=== PATIENT | female | born 1950 | race Caucasian/White ===

== ENCOUNTER → 2016-10-04 | Outpatient (CLI) | payer OTHER, MEDICARE ==
[~2016-10-04] MED LIST: IOPAMIDOL (ISOVUE-300) 100 ML BTL IV ONE
[2016-10-04 17:53] LABS: CREATININE 0.7 mg/dL (0.6-1.0); GLOMERULAR FILTRATION RATE > 60
== END ==
LOC: FIMAGING 17:10
PROVIDERS: ATTEND Internal Medicine
DX: K57.30 Diverticulosis of large intestine without perforation or abscess without bleeding (principal); K59.00 Constipation, unspecified; R93.2 Abnormal findings on diagnostic imaging of liver and biliary tract; R50.9 Fever, unspecified
CPT/HCPCS: 74177; Q9967

== ENCOUNTER → 2016-11-01 | Outpatient (CLI) | payer OTHER, MEDICARE | LOC: BMCIMAGING 09:45 | DX: Z12.31 Encounter for screening mammogram for malignant neoplasm of breast (principal); Z80.3 Family history of malignant neoplasm of breast | CPT/HCPCS: G0202 ==

== ENCOUNTER → 2016-11-04 | Outpatient (CLI) | payer OTHER, MEDICARE | LOC: FIMAGING 13:57 | PROVIDERS: ATTEND Physician Assistant Medical | DX: M54.5 Low back pain (principal) ==

== ENCOUNTER 2017-03-03 12:23 | Emergency (ER) | payer OTHER, MEDICARE ==
--- NOTE | 2017-03-03 12:47 | CPEKG ---
Heart Rate: 66 RR Interval: 909 P-R Interval: 160 QRSD Interval: 82 QT Interval: 424 QTC Interval: 445 P Burkett: 52 QRS Burkett: 29 T Wave Burkett: -1 EKG Severity - BORDERLINE ECG - EKG Impression: SINUS RHYTHM EKG Impression: BORDERLINE T ABNORMALITIES, DIFFUSE LEADS Electronically Signed By: Marquez Collins 03-Mar-2017 16:08:06
--- NOTE | 2017-03-03 13:17 | EDPHY ---
H & P Time Seen by Provider: 03/03/17 13:16 HPI/ROS: Chief complaint. Vertigo HPI. 66-year-old female presents emergency department with complaint of dizziness. She awoke during the night rolled over and became dizzy. She is somewhat off balance to walking. She is fine if she remains still but head movement precipitates nausea and dizziness. No recent illness or head injury. No similar symptoms previously. Denies peripheral weakness or paresthesias. No recent URI symptoms. On the drive over she developed just brief left-sided anterior chest discomfort. There was no radiation. No shortness of breath. The discomfort is gone now and was not exacerbated by movement, position, breathing. ROS Constitutional. no fever/chills, no weakness Eyes. no problems with vision ENT. no sore throat, no nasal drainage Cardiovascular. Brief left chest discomfort Respiratory. no shortness of breath, no cough Abdominal. no abdominal pain, no nausea/vomiting, no diarrhea . no problems urinating MS. no calf pain/swelling, no neck/back pain, no joint pain Skin. no rash Lymph. no swollen glands Neuro. Dizziness Past Medical/Surgical History: Oophorectomy, hysterectomy, bladder reposition Social History: , nonsmoker, no alcohol Smoking Status: Never smoked Physical Exam: General Appearance: Alert well-developed female mild distress vital signs are stable Eyes: Pupils equal and round no pallor or injection. No nystagmus ENT, Mouth: Mucous membranes are moist. Respiratory: There are no retractions, lungs are clear to auscultation. Cardiovascular: Regular rate and rhythm. Gastrointestinal: Abdomen is soft and nontender, no masses, bowel sounds normal. Neurological: Awake and alert, sensory and motor exams grossly normal. Speech is normal. Cranial nerves are normal. [id number] is normal there is no pronator drift. Raax-uz-[id number] is normal Skin: Warm and dry, no rashes. Musculoskeletal: Neck is supple nontender. Extremities symmetrical, full range of motion. Psychiatric: Patient is oriented X 3, there is no agitation. Constitutional: Initial Vital Signs Temperature (C) 36.6 C 03/03/17 12:28 Heart Rate 68 03/03/17 12:28 Respiratory Rate 18 03/03/17 12:28 Blood Pressure 149/91 H 03/03/17 12:28 O2 Sat (%) 96 03/03/17 12:28 O2 Delivery Mode Room Air Allergies/Adverse Reactions: NICKEL Allergy (Mild, Uncoded 03/03/17 12:24) Rash Home Medications: Medication Instructions Recorded Estrogel 04/29/16 Meclizine HCl [Meclizine HCl 25 mg 25 mg PO TID PRN #10 tab 03/03/17 (RX,OTC)] Ondansetron Odt [Zofran Odt] 4 mg PO Q4PRN PRN #4 tab 03/03/17 Medical Decision Making - Diagnostics EKG Interpretation: EKG interpreted by me shows normal sinus rhythm with normal interval and axis. QRS is normal there is diffuse T-wave flattening in V3 and V4. There is no significant ST elevation or depression. There is no arrhythmia Imaging Results: Imaging Impressions Chest X-Ray 03/03/17 13:49 Impression: Normal chest x-ray. Procedures: IV normal saline, monitor. Meclizine for dizziness ED Course/Re-evaluation: Re-evaluation 3:20 p.m.. Patient is stable. She is feeling better. However we will road test her to make sure she is feeling better Patient feeling better and ambulates without difficulty. She has had no further chest discomfort. The patient and I discussed laboratory and EKG findings. We discussed treatment plan. She is offered admission but she is feeling better and would like to go home. She is encouraged to return over the weekend should she be worse. She expresses understanding and agreement. She is encouraged to follow up with her regular physician on Sunday for re-evaluation Differential Diagnosis: Patient has no symptoms or findings of CVA. I think that this is a peripheral labyrinthitis causing vertigo. Do not find any evidence of arrhythmia or acute coronary syndrome - Data Points Laboratory Results: Laboratory Results 03/03/17 14:25 03/03/17 14:25 03/03/17 03/03/17 14:25 14:25 WBC 10.67 10^3/uL H 10^3/uL (3.80-9.50) RBC 4.90 10^6/uL 10^6/uL (4.18-5.33) Hgb 15.2 g/dL g/dL (12.6-16.3) Hct 45.3 % % (38.0-47.0) MCV 92.4 fL fL (81.5-99.8) MCH 31.0 pg pg (27.9-34.1) MCHC 33.6 g/dL g/dL (32.4-36.7) RDW 12.6 % % (11.5-15.2) Plt Count 315 10^3/uL 10^3/uL (150-400) MPV 11.2 fL fL (8.7-11.7) Neut % (Auto) 80.8 % H % (39.3-74.2) Lymph % (Auto) 12.3 % L % (15.0-45.0) [place] % (Auto) 5.0 % % (4.5-13.0) Eos % (Auto) 0.6 % % (0.6-7.6) Baso % (Auto) 0.9 % % (0.3-1.7) Nucleat RBC Rel Count 0.0 % % (0.0-0.2) Absolute Neuts (auto) 8.63 10^3/uL H 10^3/uL (1.70-6.50) Absolute Lymphs (auto) 1.31 10^3/uL 10^3/uL (1.00-3.00) Absolute Monos (auto) 0.53 10^3/uL 10^3/uL (0.30-0.80) Absolute Eos (auto) 0.06 10^3/uL 10^3/uL (0.03-0.40) Absolute Basos (auto) 0.10 10^3/uL 10^3/uL (0.02-0.10) Absolute Nucleated RBC 0.00 10^3/uL 10^3/uL (0-0.01) Immature Gran % 0.4 % % (0.0-1.1) Immature Gran # 0.04 10^3/uL 10^3/uL (0.00-0.10) Sodium 143 mEq/L mEq/L (134-144) Potassium 4.3 mEq/L mEq/L (3.5-5.2) Chloride 109 mEq/L mEq/L (97-110) Carbon Dioxide 21 mEq/l L mEq/l (22-31) Anion Gap 13 mEq/L mEq/L (8-16) BUN 12 mg/dL mg/dL (7-23) Creatinine 0.6 mg/dL mg/dL (0.6-1.0) Estimated GFR > 60 Glucose 91 mg/dL mg/dL (70-100) Calcium 9.3 mg/dL mg/dL (8.5-10.4) Troponin I < 0.012 ng/mL ng/mL (0-0.034) Medications Given: Discontinued Medications Sodium Chloride (Ns) 1,000 mls @ 0 mls/hr IV ONCE ONE; Wide Open PRN Reason: Protocol Stop: 03/03/17 13:50 Last Admin: 03/03/17 14:21 Dose: 1,000 mls Meclizine HCl (Meclizine Hcl) 25 mg PO EDNOW ONE Stop: 03/03/17 13:51 Last Admin: 03/03/17 14:21 Dose: 25 mg Ondansetron HCl (Zofran) 4 mg IVP EDNOW ONE Stop: 03/03/17 13:51 Last Admin: 03/03/17 14:21 Dose: 4 mg Departure - Departure Disposition: Home, Routine, Self-Care Clinical Impression: Vertigo Condition: Good Instructions: Vertigo (ED) Additional Instructions: Easy activity. Meclizine as needed for dizziness. Zofran if needed for nausea. Return for worsening dizziness or further chest discomfort. Recheck by Dr. Bradley on Sunday Prescriptions: Meclizine HCl [Meclizine HCl 25 mg (RX,OTC)] 25 mg PO TID PRN #10 tab PRN Reason: Dizziness Ondansetron Odt [Zofran Odt] 4 mg PO Q4PRN PRN #4 tab PRN Reason: Nausea/Vomiting, Use 1st
[2017-03-03] MEDS ORDERED: NS 1,000 ML IV ONE (13:49)
[2017-03-03] MEDS ORDERED: ONDANSETRON 4 MG/2 ML VIAL IVP ONE (13:50)
[2017-03-03] MEDS ORDERED: MECLIZINE HCL 25 MG TAB PO ONE (13:50)
[2017-03-03 14:32] LABS: % IMMATURE GRANULYOCYTES 0.4 % (0.0-1.1); ABSOLUTE IMMATURE GRANULOCYTES 0.04 10^3/uL (0.00-0.10); ADD DIFF? NO; ADD MORPH? NO; ADD SCAN? NO; ATYPICAL LYMPHOCYTE FLAG 0 (0-99); FRAGMENT RBC FLAG 0 (0-99); HEMATOCRIT 45.3 % (38.0-47.0); HEMOGLOBIN 15.2 g/dL (12.6-16.3); LEFT SHIFT FLG 0 (0-99); LIPEMIA HEMOLYSIS FLAG 80 (0-99); MEAN CELL HEMOGLOBIN CONCENTR. 33.6 g/dL (32.4-36.7); MEAN CELL VOLUME 92.4 fL (81.5-99.8); MEAN PLATELET VOLUME 11.2 fL (8.7-11.7); PLATELET CLUMPS FLAG 10 (0-99); PLATELET COUNT 315 10^3/uL (150-400); RED CELL DISTRIBUTION WIDTH 12.6 % (11.5-15.2)
[2017-03-03 14:42] LABS: ANION GAP 13 mEq/L (8-16); CALCIUM 9.3 mg/dL (8.5-10.4); CARBON DIOXIDE 21 mEq/l (22-31); CHLORIDE 109 mEq/L (97-110); CREATININE 0.6 mg/dL (0.6-1.0); GLOMERULAR FILTRATION RATE > 60; GLUCOSE 91 mg/dL (70-100); POTASSIUM 4.3 mEq/L (3.5-5.2); SODIUM 143 mEq/L (134-144)
[2017-03-03 14:50] VITALS: RESP 16
[2017-03-03 14:54] LABS: TROPONIN I < 0.012 ng/mL (0-0.034)
[2017-03-03 15:55] VITALS: BP 137/83; PULSE 72; TEMP 98.4; O2SAT 93
== END 2017-03-03 15:54 | disposition home or self-care (01) ==
DX: R42 Dizziness and giddiness (principal); E86.9 Volume depletion, unspecified
CPT/HCPCS: 71010; 93005; 96361; 96374; 99285; J2405

== ENCOUNTER → 2017-12-03 | Outpatient (CLI) | payer OTHER, MEDICARE | LOC: BMCIMAGING 12:32 | PROVIDERS: ATTEND Nurse Practitioner Adult Health | DX: Z12.31 Encounter for screening mammogram for malignant neoplasm of breast (principal); Z13.820 Encounter for screening for osteoporosis; M85.89 Other specified disorders of bone density and structure, multiple sites; I77.9 Disorder of arteries and arterioles, unspecified ==

== ENCOUNTER → 2017-12-10 | Outpatient (CLI) | payer OTHER, MEDICARE | LOC: BMCIMAGING 10:43 | PROVIDERS: ATTEND Nurse Practitioner Adult Health | DX: N60.01 Solitary cyst of right breast (principal) ==

== ENCOUNTER 2017-12-18 15:35 | Inpatient (IN) | payer OTHER, MEDICARE ==
[2017-12-18] MEDS ORDERED: ACETAMINOPHEN 325 MG TAB PO PRN (17:31)
[2017-12-18] MEDS ORDERED: ONDANSETRON DISINTEGRATING 4 MG TAB PO PRN (17:31)
[2017-12-18] MEDS ORDERED: KETOROLAC 30 MG/1 ML SDV IVP PRN (19:18)
[2017-12-18] MEDS ORDERED: ACETAMINOPHEN 325 MG TAB PO ONE (20:13)
[2017-12-18] MEDS: NS 1,000 ML IV SCH (20:58)
--- NOTE | 2017-12-18 21:40 | PDGENHP ---
History and Physical - Chief Complaint abdominal pain - History of Present Illness 67 yo female with h/o diverticulitis about one year ago is directly admitted to the hospital after failing outpatient treatment for diverticulitis. A CT scan ordered today by her PCP showed a possible abscess. She states she began having post-prandial pain 1 week ago. Her symptoms worsened and she was started on oral Augmentin by her PCP for diverticulitis on 12/14/2017. Her pain has continued to worsen. She has nausea, but no vomiting. She endorses fevers and chills, temp up to 99.9. No diarrhea. Last BM [address] scan showed possible intra-luminal abscess. She is admitted for IV atbx and surgical consultation. History Information - Allergies/Home Medication List Allergies/Adverse Reactions: NICKEL Allergy (Mild, Uncoded 03/03/17 12:24) Rash Home Medications: Amoxicillin/Clavulanate Pot [Augmentin 875 MG TAB (*)] 875 mg PO BID 12/18/17 [ Last Taken 12/18/17] Diclofenac Sodium [Voltaren 75 MG (*)] 75 mg PO BID PRN 12/18/17 [Last Taken Unknown] Herbals/Supplements -Info Only 1 ea PO DAILY 12/18/17 [Last Taken Unknown] Ranitidine HCl [Ranitidine HCl] 150 mg PO BID 12/18/17 [Last Taken 12/18/17] I have personally reviewed and updated: family history, medical history, social history, surgical history - Past Medical History Additional medical history: H/O diverticulitis x1 in 2017 - Surgical History Reports: no pertinent surgical hx - Family History Positive for: non-pertinent - Social History Smoking Status: Never smoked Alcohol Use: Rarely Drug Use: None Additional social history: Lives independently, . Review of Systems Review of Systems: ROS: 10pt was reviewed & negative except for what was stated in HPI & below Physical Exam Physical Exam: Temp Pulse Resp BP Pulse Ox 36.9 C 77 16 145/83 H 94 12/18/17 20:00 12/18/17 20:00 12/18/17 20:00 12/18/17 20:00 12/18/17 20:00 Constitutional: no apparent distress Eyes: PERRL Ears, Nose, Mouth, Throat: moist mucous membranes Cardiovascular: regular rate and rhythym, no murmur, rub, or gallop Respiratory: no respiratory distress, clear to auscultation Gastrointestinal: other (soft, minimal distention, +TTP diffusely, no r/r/g or peritoneal signs, decreased bowel tones) Skin: warm Musculoskeletal: full muscle strength Neurologic: AAOx3 Psychiatric: interacting appropriately Lab Data & Imaging Review POC Glucose 90 mg/dL (70-100) 12/18/17 18:15 Assessment & Plan Assessment: Diverticulitis - failed outpatient therapy with Augmentin (4 [address] images with Dr. Vasquez, gen surg, who does not feel the colon wall abscess is amenable to drainage and recommends IV atbx therapy. Normal cbc and cmp as outpt today. -IV Ceftriaxone plus Flagyl -surgery following -clear liquids, pain control DVT PPLX - med risk, Lovenox Full code Dispo - admit to inpt, anticipate >48 hrs hospitalization for ongoing management of acute diverticulitis with possible abscess
[2017-12-19] MEDS: ACETAMINOPHEN 500 MG TAB PO SCH ×3 (04:37→20:02)
[2017-12-19] MEDS: KETOROLAC 30 MG/1 ML SDV IVP PRN ×3 (05:28→23:42)
[2017-12-19 05:36] LABS: PLATELET COUNT 320 10^3/uL (150-400)
[2017-12-19] MEDS: NS 1,000 ML IV SCH ×2 (08:13→17:27)
[2017-12-19] MEDS: FAMOTIDINE 20 MG TAB PO SCH ×2 (08:13→20:03)
[2017-12-19] MEDS: ONDANSETRON 4 MG/2 ML VIAL IVP PRN (08:14)
[2017-12-19] MEDS: cefTRIAXone 2 GM in STERILE WATER INJ 20 ML IV SCH (08:24)
--- NOTE | 2017-12-19 08:30 | PDMN ---
Medical Necessity Medical necessity: Pt meets IP criteria per MD; est los >2 mn for eval/tx of acute diverticulitis w/failed outpatient treatment, worsening pain, nausea & possible abscess; admit for Surgery consult, IV abx, IVFs & IV pain meds/ antiemetics; per H&P & order 12/18/17
[2017-12-19] MEDS ORDERED: ENOXAPARIN 40 MG/0.4 ML SYR SC SCH (09:00)
--- NOTE | 2017-12-19 09:53 | ASMTCMCOM ---
CM Note CM Note Notes: Patient admitted after failing outpatient treatment for diverticulitis. She is being treated with IV antibiotics and will be seen for a surgical consult. Patient is normally independent, lives with Ignacio, and does not have any acute PT/OT needs. I anticipate an independent discharge, but if any needs arise Case Management will follow. Date Signed: 12/19/2017 09:52 AM Electronically Signed By:Ethel Zavala RN
--- NOTE | 2017-12-19 11:14 | HOSPPROG ---
Hospitalist Progress Note Assessment/Plan: Diverticulitis - failed outpatient therapy with Augmentin. Reviewed CT images with Dr. Vasquez, gen surg, recommends IV abx therapy and consult surgery if not improving -IV Ceftriaxone plus Flagyl -change to full liquids anemia- monitor for stability DVT PPLX - med risk, Lovenox Full code PCP- Dr Yvette Talamantes Dispo - admit to inpt, anticipate >48 hrs hospitalization for ongoing management of acute diverticulitis with possible abscess Subjective: in room, says feels terrible, thinks hypoglycemic- says needs protein. No nvd/cp/sob. Objective: Vital Signs Temp Pulse Resp BP Pulse Ox 98.2 F 74 18 127/74 H 92 12/19/17 10:54 12/19/17 10:54 12/19/17 10:54 12/19/17 10:54 12/19/17 10:54 Laboratory Results 12/19/17 05:20 12/19/17 05:20 12/17/17 12/18/17 12/19/17 11:59 11:59 11:59 Intake Total 320 Balance 320 - Time Spent With Patient Time Spent with Patient: greater than 35 minutes Time Spent with Patient: Greater than 35 minutes spent on this patients care, greater than 50% of time spent counseling, educating, and coordinating care regarding the above mentioned plan. - Physical Exam Constitutional: no apparent distress, appears nourished, not in pain Eyes: anicteric sclera Ears, Nose, Mouth, Throat: moist mucous membranes, hearing normal Cardiovascular: regular rate and rhythym, no murmur, rub, or gallop Respiratory: no respiratory distress, no rales or rhonchi, clear to auscultation Gastrointestinal: normoactive bowel sounds, tenderness (diffuse, mild), guarding , rebound, distension Skin: warm, normal color Psychiatric: interacting appropriately, not anxious, not encephalopathic ICD10 Worksheet Patient Problems: Problems Problem Status Onset Diverticulitis Acute - ICD10 Problem Qualifiers (1) Diverticulitis
[2017-12-20] MEDS: ACETAMINOPHEN 500 MG TAB PO SCH ×2 (03:13→11:46)
[2017-12-20 08:09] LABS: PLATELET COUNT 309 10^3/uL (150-400)
[2017-12-20] MEDS: cefTRIAXone 2 GM in STERILE WATER INJ 20 ML IV SCH (08:52)
[2017-12-20] MEDS: FAMOTIDINE 20 MG TAB PO SCH (08:53)
[2017-12-20] MEDS: RELIZEN PO SCH (08:57)
[2017-12-20] MEDS: PANTOPRAZOLE SODIUM 40 MG VIAL IVP SCH (13:55)
--- NOTE | 2017-12-20 17:07 | HOSPPROG ---
Hospitalist Progress Note Assessment/Plan: Diverticulitis - failed outpatient therapy with Augmentin. Reviewed CT images with Dr. Vasquez, gen surg, recommends IV abx therapy and consult surgery if not improving -IV Ceftriaxone plus Flagyl -try some mild solids today, still with full liquids/adv as tolerated -consider changing IVF to D5 if not eating much bc of her reports of hypoglycemia anemia- monitor for stability DVT PPX - med risk, Lovenox Full code PCP- Dr Yvette Talamantes Dispo - admit to inpt, anticipate >48 hrs hospitalization for ongoing management of acute diverticulitis Subjective: Feels a bit better, 'fog has lifted' and confirms 'seems perkier.' Not able to eat/drink much, has a restrictive diet normally bc of multiple food sensitivites. No v/d/cp/sob. Objective: Vital Signs Temp Pulse Resp BP Pulse Ox 98.4 F 68 16 122/60 H 95 12/20/17 16:00 12/20/17 16:00 12/20/17 16:00 12/20/17 16:00 12/20/17 16:00 Laboratory Results 12/20/17 07:55 12/20/17 07:55 12/19/17 12/20/17 12/21/17 11:59 11:59 11:59 Intake Total 320 500 425 Output Total 1750 800 Balance 320 -1250 -375 - Time Spent With Patient Time Spent with Patient: greater than 35 minutes Time Spent with Patient: Greater than 35 minutes spent on this patients care, greater than 50% of time spent counseling, educating, and coordinating care regarding the above mentioned plan. - Physical Exam Constitutional: no apparent distress, appears nourished, not in pain Eyes: anicteric sclera Ears, Nose, Mouth, Throat: moist mucous membranes Cardiovascular: regular rate and rhythym, no murmur, rub, or gallop Respiratory: no respiratory distress, no rales or rhonchi, clear to auscultation Gastrointestinal: normoactive bowel sounds, tenderness (mild throughout), No guarding, No rebound Skin: warm Psychiatric: interacting appropriately, not anxious, not encephalopathic, thought process linear ICD10 Worksheet Patient Problems: Problems Problem Status Onset Diverticulitis Acute - ICD10 Problem Qualifiers (1) Diverticulitis
--- NOTE | 2017-12-20 17:10 | HOSPPROG ---
Hospitalist Progress Note Assessment/Plan: Diverticulitis - failed outpatient therapy with Augmentin. Reviewed CT images with Dr. Vasquez, gen surg, recommends IV abx therapy and consult surgery if not improving -IV Ceftriaxone plus Flagyl -change to full liquids anemia- monitor for stability DVT PPLX - med risk, Lovenox Full code PCP- Dr Yvette Talamantes Dispo - admit to inpt, anticipate >48 hrs hospitalization for ongoing management of acute diverticulitis with possible abscess Subjective: opened in error Objective: Vital Signs Temp Pulse Resp BP Pulse Ox 98.4 F 68 16 122/60 H 95 12/20/17 16:00 12/20/17 16:00 12/20/17 16:00 12/20/17 16:00 12/20/17 16:00 Laboratory Results 12/20/17 07:55 12/20/17 07:55 12/19/17 12/20/17 12/21/17 11:59 11:59 11:59 Intake Total 320 500 425 Output Total 1750 800 Balance 320 -1250 -228 ICD10 Worksheet Patient Problems: Problems Problem Status Onset Diverticulitis Acute - ICD10 Problem Qualifiers (1) Diverticulitis
[2017-12-20] MEDS: KETOROLAC 30 MG/1 ML SDV IVP PRN (17:31)
[2017-12-20] MEDS ORDERED: D5W 1/2 NS 1,000 ML IV SCH (18:15)
[2017-12-21] MEDS: HYDROCODONE/APAP 5/325 TAB PO PRN (01:05)
[2017-12-21 05:31] LABS: PLATELET COUNT 360 10^3/uL (150-400)
[2017-12-21] MEDS: PANTOPRAZOLE SODIUM 40 MG VIAL IVP SCH (09:00)
[2017-12-21] MEDS: cefTRIAXone 2 GM in STERILE WATER INJ 20 ML IV SCH (09:02)
[2017-12-21] MEDS: ACETAMINOPHEN 325 MG TAB PO PRN ×2 (09:02→23:14)
[2017-12-21] MEDS: RELIZEN PO SCH (09:03)
[2017-12-21] MEDS: ONDANSETRON 4 MG/2 ML VIAL IVP PRN (09:10)
--- NOTE | 2017-12-21 12:55 | HOSPPROG ---
Hospitalist Progress Note Assessment/Plan: 67-year-old female presents the emergency room with complaints of abdominal pain. Had been on Augmentin in the outpatient setting for presumed diverticulitis. CT shows possible abcess. First encounter, chart reviewed. # Diverticulitis - failed outpatient therapy with Augmentin. D/W Dr Orozco, he will consult per patient request IV abx therapy IV Ceftriaxone plus Flagyl still with full liquids not tolerating food KUB today, likely need repeat CT #Hypoglycemia follow chronic #anemia- monitor for stability #DVT PPX - med risk, Lovenox Full code PCP- Dr Yvette Talamantes Dispo - admit to inpt, anticipate >48 hrs hospitalization for ongoing management of acute diverticulitis Subjective: Still having pain. Not feeling better. Wants to move forward. Objective: Vital Signs Temp Pulse Resp BP Pulse Ox 36.8 C 74 16 145/81 H 94 12/21/17 08:00 12/21/17 08:00 12/21/17 08:00 12/21/17 08:00 12/21/17 08:00 Laboratory Results 12/21/17 05:05 12/21/17 05:05 12/20/17 12/21/17 12/22/17 05:59 05:59 05:59 Intake Total 500 425 Output Total 1750 1400 Balance -1250 -905 - Physical Exam Constitutional: appears nourished, uncomfortable, No obese Eyes: PERRL, anicteric sclera, EOMI Ears, Nose, Mouth, Throat: moist mucous membranes, hearing normal, ears appear normal Cardiovascular: regular rate and rhythym, No JVD, No edema Respiratory: no respiratory distress, no rales or rhonchi, clear to auscultation Gastrointestinal: tenderness, distension, No ascites, No guarding Skin: warm, normal color, No mottled Musculoskeletal: normal joint ROM, no joint effusions, generalized weakness Neurologic: AAOx3 Psychiatric: interacting appropriately, not anxious, not encephalopathic, thought process linear ICD10 Worksheet Patient Problems: Problems Problem Status Onset Diverticulitis Acute
--- NOTE | 2017-12-21 15:57 | ASMTCMCOM ---
CM Note CM Note Notes: CM reviewed PT's case to see if there were any changes in treatment plan or D/C needs. PT still on IV antibiotics but, continue to anticipate will be able to D/C home with supportive family. Date Signed: 12/21/2017 03:56 PM Electronically Signed By:Roxanne Ford
--- NOTE | 2017-12-21 16:27 | SOAPPROG ---
[facility] Progress Note Assessment/Plan: Assessment: 67-year-old female with recurrent diverticulitis now complicated but intramural abscess and partial obstruction. She is afebrile but has pain with any attempted eating. She has no bloating or emesis but is also not passing much gas or stool. She is otherwise quite healthy active 67-year-old female HEENT nonicteric without adenopathy Chest clear Cor regular rhythm Abdomen soft with bowel sounds mildly tender in the suprapubic area with no hernia Extremities full range of motion full pulses Impression is recurrent diverticulitis with contained abscess/I think she can have 1 stage operation as her abscesses well contained with within the mesentery of the sigmoid colon and she is adequate the colon above and below the area for primary anastomosis Plan: IV antibiotics for now and then laparoscopic colectomy next week/risks and options been fully discussed including the possible need for colostomy 12/21/17 16:24 Objective: Vital Signs Temp Pulse Resp BP Pulse Ox 36.8 C 74 16 153/90 H 93 12/21/17 15:30 12/21/17 15:30 12/21/17 15:30 12/21/17 15:30 12/21/17 15:30 Laboratory Results 12/21/17 05:05 12/21/17 05:05 12/20/17 12/21/17 12/22/17 05:59 05:59 05:59 Intake Total 500 425 Output Total 1750 1400 Balance -4152 -992 ICD10 Worksheet Patient Problems: Problems Problem Status Onset Diverticulitis Acute
[2017-12-22] MEDS: ACETAMINOPHEN 325 MG TAB PO PRN (04:55)
[2017-12-22] MEDS: PANTOPRAZOLE SODIUM 40 MG VIAL IVP SCH (07:52)
[2017-12-22] MEDS: cefTRIAXone 2 GM in STERILE WATER INJ 20 ML IV SCH (07:57)
--- NOTE | 2017-12-22 09:49 | HOSPPROG ---
Hospitalist Progress Note Assessment/Plan: 67-year-old female presents the emergency room with complaints of abdominal pain. Had been on Augmentin in the outpatient setting for presumed diverticulitis. CT shows possible abscess. First encounter, chart reviewed. # Recurrent Diverticulitis w contained abscess -laparoscopic colectomy next week -IV Ceftriaxone plus Flagyl -patient anxious to get surgery done #Hypoglycemia stable #anemia- monitor #DVT PPX - med risk, Lovenox #plan: tolerating full liquids Subjective: Latisha is not having much pain. She says she does well w full liquids but pain increases w a regular diet. Objective: Vital Signs Temp Pulse Resp BP Pulse Ox 36.8 C 82 16 134/70 H 94 12/22/17 08:00 12/22/17 08:00 12/22/17 08:00 12/22/17 08:00 12/22/17 08:00 Laboratory Results 12/21/17 05:05 12/21/17 05:05 12/21/17 12/22/17 12/23/17 05:59 05:59 05:59 Intake Total 425 750 Output Total 1400 Balance -975 750 - Physical Exam Constitutional: no apparent distress, appears nourished, not in pain Eyes: PERRL Ears, Nose, Mouth, Throat: hearing normal Cardiovascular: regular rate and rhythym Respiratory: no respiratory distress Gastrointestinal: normoactive bowel sounds, soft, non-tender abdomen Skin: warm Musculoskeletal: full muscle strength Neurologic: AAOx3 Psychiatric: interacting appropriately ICD10 Worksheet Patient Problems: Problems Problem Status Onset Diverticulitis Acute
[2017-12-22] MEDS: RELIZEN PO SCH (10:39)
--- NOTE | 2017-12-22 12:12 | SOAPPROG ---
[facility] Progress Note Assessment/Plan: Assessment: 67-year-old female with recurrent diverticulitis now complicated but intramural abscess and partial obstruction. She is afebrile but has pain with any attempted eating. She has no bloating or emesis but is also not passing much gas or stool. She is otherwise quite healthy active 67-year-old female HEENT nonicteric without adenopathy Chest clear Cor regular rhythm Abdomen soft with bowel sounds mildly tender in the suprapubic area with no hernia Extremities full range of motion full pulses Impression is recurrent diverticulitis with contained abscess/I think she can have 1 stage operation as her abscesses well contained with within the mesentery of the sigmoid colon and she is adequate the colon above and below the area for primary anastomosis Plan: IV antibiotics for now and then laparoscopic colectomy next week/risks and options been fully discussed including the possible need for colostomy 12/21/17 16:24 12/22/17 12:11 AFEBRILE/VITAL SIGNS STABLE/ABDOMEN SOFT AND MINIMALLY TENDER/URINE OUTPUT OKAY TOLERATING SMALL AMOUNTS OF CLEARS/NO BM/HEMATOCRIT 37/WBC 9 K/LYTES OKAY WILL NEED SIGMOID COLECTOMY WHEN STABLE// PATIENT ANXIOUS TO PROCEED WITH SURGERY NEXT WEEK 12/22/17 14:41 Objective: Vital Signs Temp Pulse Resp BP Pulse Ox 36.8 C 82 16 134/70 H 94 12/22/17 08:00 12/22/17 08:00 12/22/17 08:00 12/22/17 08:00 12/22/17 08:00 Laboratory Results 12/21/17 05:05 12/21/17 05:05 12/21/17 12/22/17 12/23/17 05:59 05:59 05:59 Intake Total 425 750 Output Total 1400 Balance -975 750 ICD10 Worksheet Patient Problems: Problems Problem Status Onset Diverticulitis Acute
--- NOTE | 2017-12-23 08:56 | HOSPPROG ---
Hospitalist Progress Note Assessment/Plan: 67-year-old female presents the emergency room with complaints of abdominal pain. Had been on Augmentin in the outpatient setting for presumed diverticulitis. CT shows possible abscess. # Recurrent Diverticulitis w contained abscess -laparoscopic colectomy next week -IV Ceftriaxone plus Flagyl -patient anxious to get surgery done -having mild symptoms today #Hypoglycemia stable #anemia- monitor #DVT PPX - frequent ambulation #plan: tolerating full liquids Subjective: Latisha has some c/o vague abd pain. Objective: Vital Signs Temp Pulse Resp BP Pulse Ox 36.6 C 65 16 147/78 H 94 12/23/17 07:43 12/23/17 07:43 12/23/17 07:43 12/23/17 07:43 12/23/17 07:43 Laboratory Results 12/21/17 05:05 12/21/17 05:05 12/22/17 12/23/17 12/24/17 05:59 05:59 05:59 Intake Total 750 Balance 750 - Physical Exam Constitutional: uncomfortable Eyes: PERRL Ears, Nose, Mouth, Throat: hearing normal Cardiovascular: regular rate and rhythym Respiratory: no respiratory distress Gastrointestinal: normoactive bowel sounds, No soft, non-tender abdomen ( slightly tender in LLQ) Skin: warm Musculoskeletal: full muscle strength Neurologic: AAOx3 Psychiatric: interacting appropriately ICD10 Worksheet Patient Problems: Problems Problem Status Onset Diverticulitis Acute
[2017-12-23] MEDS: cefTRIAXone 2 GM in STERILE WATER INJ 20 ML IV SCH (09:01)
[2017-12-23] MEDS: PANTOPRAZOLE SODIUM 40 MG VIAL IVP SCH (09:01)
[2017-12-23] MEDS: RELIZEN PO SCH (09:01)
[2017-12-23] MEDS: ACETAMINOPHEN 325 MG TAB PO PRN (16:08)
--- NOTE | 2017-12-23 18:39 | GCON ---
[f rep st] CONSULTATION DATE OF CONSULTATION: 12/21/2017 HISTORY OF PRESENT ILLNESS: The patient is a 67-year-old female who was admitted for abdominal pain, was found to have significant diverticulitis with possible intramural abscess. She has been afebril e, but having tremendous pain with eating. She has had previous diverticulitis at least 1 episode in the last year. CT scan reveals a largely redundant sigmoid colon kinked on itself with an interloop abscess and significant diverticulitis. There is no free fluid or other areas of contamination. ALLERGIES: Nickel. PRESENT MEDICATIONS: Amoxicillin, Voltaren, and ranitidine. PAST MEDICAL HISTORY: Includes diverticulitis. PAST SURGICAL HISTORY: No surgical history. FAMILY HISTORY: Noncontributory. SOCIAL HISTORY: Reveals she does not smoke. REVIEW OF SYSTEMS: Negative on a full 10-point review of systems. PHYSICAL EXAMINATION: GENERAL: Reveals a healthy, alert 67-year-old female in no acute distress. H EAD AND NECK: Reveals no icterus, adenopathy, or oral lesions. NECK: Supple, nontender. CHEST: C lear. CARDIAC: Reveals a regular rhythm. ABDOMEN: Soft. She is tender in the suprapubic area, bu t no rebound. She does have positive bowel sounds. There is minimal distention and no hernias. EXT REMITIES: Benign with full pulses, full range of motion. NEUROLOGIC: Physiologic. PSYCH: Reveals her to be alert, cooperative, and oriented. IMPRESSION: Complicated diverticulitis which is recurrent. RECOMMENDATIONS: Continued antibiotic therapy IV. As she stabilizes, I would proceed with a 1-stage colectomy. I think she can avoid a colostomy if we are patient with the timing of the surgery. On the other hand, she is in a fair amount of pain when she tries to eat, so we cannot wait 3-4 weeks fo r surgery. I think that she can probably have surgery next week. /[id number]/MODL
--- NOTE | 2017-12-23 20:42 | SOAPPROG ---
[facility] Progress Note Assessment/Plan: Assessment: 67-year-old female with recurrent diverticulitis now complicated but intramural abscess and partial obstruction. She is afebrile but has pain with any attempted eating. She has no bloating or emesis but is also not passing much gas or stool. She is otherwise quite healthy active 67-year-old female HEENT nonicteric without adenopathy Chest clear Cor regular rhythm Abdomen soft with bowel sounds mildly tender in the suprapubic area with no hernia Extremities full range of motion full pulses Impression is recurrent diverticulitis with contained abscess/I think she can have 1 stage operation as her abscesses well contained with within the mesentery of the sigmoid colon and she is adequate the colon above and below the area for primary anastomosis Plan: IV antibiotics for now and then laparoscopic colectomy next week/risks and options been fully discussed including the possible need for colostomy 12/21/17 16:24 12/22/17 12:11 AFEBRILE/VITAL SIGNS STABLE/ABDOMEN SOFT AND MINIMALLY TENDER/URINE OUTPUT OKAY TOLERATING SMALL AMOUNTS OF CLEARS/NO BM/HEMATOCRIT 37/WBC 9 K/LYTES OKAY WILL NEED SIGMOID COLECTOMY WHEN STABLE// PATIENT ANXIOUS TO PROCEED WITH SURGERY NEXT WEEK 12/22/17 14:41 12/23/17 20:41 SLOW IMPROVEMENT TODAY/AFEBRILE/UNABLE TO EAT MUCH MORE THAN BROTH/SOME FLATUS AND A SMALL BOWEL MOVEMENT TODAY RISKS AND OPTIONS FULLY DISCUSSED AND SHE PREFERS TO PROCEED WITH SURGERY/WILL RE-EVALUATE IN THE A.M. Objective: Vital Signs Temp Pulse Resp BP Pulse Ox 36.8 C 81 16 139/83 H 95 12/23/17 15:59 12/23/17 15:59 12/23/17 15:59 12/23/17 15:59 12/23/17 15:59 Laboratory Results 12/21/17 05:05 12/21/17 05:05 12/22/17 12/23/17 12/24/17 05:59 05:59 05:59 Intake Total 750 Balance 750 ICD10 Worksheet Patient Problems: Problems Problem Status Onset Diverticulitis Acute
[2017-12-24] MEDS: cefTRIAXone 2 GM in STERILE WATER INJ 20 ML IV SCH (07:45)
[2017-12-24] MEDS: RELIZEN PO SCH (07:45)
[2017-12-24] MEDS: PANTOPRAZOLE SODIUM 40 MG VIAL IVP SCH (07:45)
--- NOTE | 2017-12-24 08:58 | HOSPPROG ---
Hospitalist Progress Note Assessment/Plan: 67-year-old female presents the emergency room with complaints of abdominal pain. Had been on Augmentin in the outpatient setting for presumed diverticulitis. CT shows possible abscess. # Recurrent Diverticulitis w contained abscess -laparoscopic colectomy today -has had some colicky intermittent pain -IV Ceftriaxone plus Flagyl -OR today #Hypoglycemia stable #anemia- monitor #DVT PPX - -frequent ambulation -will need lmwh initiated after surgery #plan: NPO, iv fluids ordered, labs in a.m. Subjective: Latisha is feeling well today. Has no complaints. Objective: Vital Signs Temp Pulse Resp BP Pulse Ox 36.6 C 82 16 154/91 H 96 12/23/17 23:20 12/23/17 23:20 12/23/17 23:20 12/23/17 23:20 12/23/17 23:20 Microbiology 12/18/17 19:40 Blood Culture - Final Blood 12/18/17 18:40 Blood Culture - Final Blood Laboratory Results 12/21/17 05:05 12/21/17 05:05 12/23/17 12/24/17 12/25/17 05:59 05:59 05:59 Intake Total 125 Balance 125 - Physical Exam Constitutional: no apparent distress, appears nourished, not in pain Eyes: PERRL Ears, Nose, Mouth, Throat: hearing normal Cardiovascular: regular rate and rhythym Respiratory: no respiratory distress Gastrointestinal: normoactive bowel sounds, soft, non-tender abdomen Skin: warm Musculoskeletal: full muscle strength Neurologic: AAOx3 Psychiatric: interacting appropriately ICD10 Worksheet Patient Problems: Problems Problem Status Onset Diverticulitis Acute
[2017-12-24] MEDS ORDERED: NS 1,000 ML IV SCH (09:00)
--- NOTE | 2017-12-24 12:09 | SOAPPROG ---
SOAP Progress Note Assessment/Plan: Assessment: 67-year-old female with recurrent diverticulitis, intramural abscess and partial obstruction. S: Feeling better today. Pt thinks this is due to not eating or drinking anything. Had a BM yesterday. Denies nausea and vomiting. O:Alert Afebrile Cardiac: RRR Chest: CTA bilaterally Abdomen: soft, mildly distended, mildly tender to palpation, +BS. Plan: Plan for surgery later today. Pt will need a laparoscopic sigmoid colectomy with possible colostomy. Discussed risks and options with pt and and they are agreeable to plan. 12/24/17 12:05 Objective: Vital Signs Temp Pulse Resp BP Pulse Ox 35 C L 71 15 150/74 H 94 12/24/17 08:00 12/24/17 08:00 12/24/17 08:00 12/24/17 08:00 12/24/17 08:00 Microbiology 12/18/17 19:40 Blood Culture - Final Blood 12/18/17 18:40 Blood Culture - Final Blood Laboratory Results 12/21/17 05:05 12/21/17 05:05 12/23/17 12/24/17 12/25/17 05:59 05:59 05:59 Intake Total 125 Balance 125 ICD10 Worksheet Patient Problems: Problems Problem Status Onset Diverticulitis Acute
--- NOTE | 2017-12-24 14:36 | ASMTCMCOM ---
CM Note CM Note Notes: Pt will have a laparoscopic sigmoid colectomy w/ possible colostomy today. Pt will most likely d/c independent when medically stable. CM available for d/c needs. Plan: Independent Date Signed: 12/24/2017 02:35 PM Electronically Signed By:PENNY Gtz
[2017-12-24] MEDS ORDERED: LR 1,000 ML IV ONE (15:14)
[2017-12-24] MEDS ORDERED: BUPIVACAINE 0.5% 30 ML SDV ONE (16:26)
[2017-12-24] MEDS ORDERED: HEPARIN 1000 UNIT/1 ML MDV ONE ×2 (16:27→16:28)
[2017-12-24] MEDS ORDERED: ceFAZolin 1 GM/5 ML SYR ONE (16:28)
[2017-12-24] MEDS ORDERED: MIDAZOLAM 2 MG/2 ML VIAL IVP ONE (17:25)
--- NOTE | 2017-12-24 17:26 | PDANEPAE ---
ANE History of Present Illness here for colectomy ANE Past Medical History - Cardiovascular History Hx Hypertension: No Hx Arrhythmias: No Hx Chest Pain: No Hx Coronary Artery / Peripheral Vascular Disease: No Hx CHF / Valvular Disease: No Hx Palpitations: No - Pulmonary History Hx COPD: No Hx Asthma/Reactive Airway Disease: No Hx Recent Upper Respiratory Infection: No Hx Oxygen in Use at Home: No Hx Sleep Apnea: Yes Sleep Apnea Screening Result - Last Documented: Positive - Endocrine History Hx Diabetes: No Obesity: mild - Renal History Hx Renal Disorders: No - Liver History Hx Hepatic Disorders: No - Neurological & Psychiatric Hx Hx Neurological and Psychiatric Disorders: No - Cancer History Hx Cancer: No - GI History GERD: mild (diverticulitis) ANE Review of Systems Review of systems is: negative Review of Systems: - Exercise capacity Exercise capacity: >=4 METS ANE Patient History - Allergies Allergies/Adverse Reactions: NICKEL Allergy (Mild, Uncoded 03/03/17 12:24) Rash - Home Medications Home medications: home medication list seen and reviewed Home Medications: Amoxicillin/Clavulanate Pot [Augmentin 875 MG TAB (*)] 875 mg PO BID 12/18/17 [ Last Taken 12/18/17] Diclofenac Sodium [Voltaren 75 MG (*)] 75 mg PO BID PRN 12/18/17 [Last Taken Unknown] Herbals/Supplements -Info Only 1 ea PO DAILY 12/18/17 [Last Taken Unknown] Ranitidine HCl [Ranitidine HCl] 150 mg PO BID 12/18/17 [Last Taken 12/18/17] - NPO status NPO Status: no food or drink >8 hours (unpleasant episode after chronic pain injection, aware but unable to respond ) NPO Since - Liquids (Date): 12/23/17 NPO Since - Liquids (Time): 23:00 NPO Since - Solids (Date): 12/23/17 NPO Since - Solids (Time): 23:00 - Smoking Hx Smoking Status: Never smoked - Alcohol Use Alcohol Use: Rarely ANE Labs/Vital Signs - Labs Result Diagrams: 12/21/17 05:05 12/21/17 05:05 - Vital Signs Vital Signs: reviewed preoperatively; see RN documention for details Blood Pressure: 148/82 Heart Rate: 75 Respiratory Rate: 15 O2 Sat (%): 95 Height: 152.4 cm Weight: 58.649 kg ANE Physical Exam - Airway Neck exam: FROM Mallampati Score: Class 1 - Pulmonary Pulmonary: no respiratory distress - Cardiovascular Cardiovascular: regular rate and rhythym - ASA Status ASA Status: II ANE Anesthesia Plan Anesthesia Plan: general endotracheal anesthesia
[2017-12-24] MEDS ORDERED: PROPOFOL/EMULSION 500 MG/50 ML BOTTLE IV ONE (17:40)
[2017-12-24] MEDS ORDERED: fentaNYL 100 MCG/2 ML INJ ONE ×4 (17:45→20:58)
[2017-12-24] MEDS ORDERED: HYDROmorphONE/DILAUDID 2 MG/ML INJ IVP PRN (19:52)
[2017-12-24] MEDS ORDERED: ALBUTEROL 3 ML DEYVIAL IH PRN (19:52)
[2017-12-24] MEDS ORDERED: DEXAMETHASONE 4 MG/ML VIAL IVP PRN (19:52)
[2017-12-24] MEDS ORDERED: NALOXONE HCL 0.4 MG/ML INJ IVP PRN ×2 (19:52→19:56)
[2017-12-24] MEDS ORDERED: LR 500 ML IV PRN (19:52)
--- NOTE | 2017-12-24 19:55 | POSTOPPROG ---
Post Op Note Date of Operation: 12/24/17 Surgeon: Viral Orozco Home Theatre Technician: Milton Anesthesiologist: Marco Antonio Anesthesia: GET(General Endotracheal) Pre-op Diagnosis: Perforated sigmoid diverticulitis Post-op Diagnosis: Same Indication: pain Procedure: Lap assisted sigmoid colectomy for perforated diverticulitis Inf/Abcess present in the surg proc area at time of surgery?: Yes Depth: Organ Space EBL: 50-100 Specimen(s): Sigmoid colon- permanent
[2017-12-24] MEDS ORDERED: HYDROmorphONE/DILAUDID 6 MG/30 ML PCA IV PRN (19:56)
[2017-12-24] MEDS ORDERED: SUGAMMADEX SODIUM 200 MG/2 ML VIAL IVP ONE (20:00)
--- NOTE | 2017-12-24 20:37 | POSTANESTH ---
Post Anesthetic Evaluation Cardiovascular Status: Normal, Stable Respiratory Status: Normal, Stable Level of Consciousness/Mental Status: Mildly Sleepy, Arousable Pain Control: Adequate, Prn Tx Ordered Nausea/Vomiting Control: Adequate, Prn Tx Ordered Complications Possibly Related to Anesthesia: None Noted
[2017-12-24] MEDS ORDERED: ONDANSETRON 4 MG/2 ML VIAL ONE ×2 (20:58→21:12)
[2017-12-24] MEDS: ONDANSETRON 4 MG/2 ML VIAL IVP PRN ×2 (21:01→21:13)
[2017-12-24] MEDS: fentaNYL 100 MCG/2 ML INJ IVP PRN ×2 (21:01→21:13)
[2017-12-24] MEDS: HYDROmorphone HCL/NS 0.5 MG/ML SYR IVP PRN (22:03)
[2017-12-24] MEDS: METOCLOPRAMIDE 10 MG/2 ML VIAL IVP SCH (23:09)
[2017-12-24] MEDS: KETOROLAC 15 MG/1 ML SDV IVP SCH (23:09)
[2017-12-25] MEDS: HYDROmorphone HCL/NS 0.5 MG/ML SYR IVP PRN ×2 (02:09→08:15)
[2017-12-25] MEDS: METOCLOPRAMIDE 10 MG/2 ML VIAL IVP SCH ×3 (05:02→18:20)
[2017-12-25] MEDS: KETOROLAC 15 MG/1 ML SDV IVP SCH ×3 (05:02→18:19)
[2017-12-25 05:32] LABS: PLATELET COUNT 398 10^3/uL (150-400)
[2017-12-25] MEDS: cefTRIAXone 2 GM in STERILE WATER INJ 20 ML IV SCH (08:15)
[2017-12-25] MEDS: PANTOPRAZOLE SODIUM 40 MG VIAL IVP SCH (08:26)
[2017-12-25] MEDS: RELIZEN PO SCH ×2 (09:22→16:50)
--- NOTE | 2017-12-25 10:54 | SOAPPROG ---
SOAP Progress Note Assessment/Plan: Assessment/Plan: 67 Y F s/p sigmoid colectomy for perforated diverticulitis. POD #1. Doing well. Pain controlled. Tolerating clear diet. Choudhury replaced last night after some leakage. Can remove later today. Continue IV abx. Wounds intact. OOB today. Routine post op care. D/w'ed Dr. Orozco who will see the patient this morning also. S: just had some pain meds. no flatus, but some tummy rumbling. no n/v. O: alert, nad no wob inc cdi, abd soft, rare BS 12/25/17 10:50 Objective: Vital Signs Temp Pulse Resp BP Pulse Ox 36.6 C 75 16 131/72 H 93 12/25/17 07:30 12/25/17 07:30 12/25/17 07:30 12/25/17 07:30 12/25/17 07:30 Microbiology 12/18/17 19:40 Blood Culture - Final Blood 12/18/17 18:40 Blood Culture - Final Blood Laboratory Results 12/25/17 04:44 12/25/17 04:44 12/24/17 12/25/17 12/26/17 05:59 05:59 05:59 Intake Total 125 1520 Output Total 500 Balance 125 1020 ICD10 Worksheet Patient Problems: Problems Problem Status Onset Diverticulitis Acute
--- NOTE | 2017-12-25 11:48 | GOP ---
[f rep st] OPERATIVE REPORT DATE OF OPERATION: 12/24/2017 SURGEON: Viral Orozco MD [employer]: Meghana Rose, nurse practitioner. ANESTHESIOLOGIST: Dr. Bernard. PREOPERATIVE DIAGNOSIS: Recurrent diverticulitis with perforation. POSTOPERATIVE DIAGNOSIS: Same PROCEDURE PERFORMED: Low anterior sigmoid colon resection with splenic flexure mobilization and drainage of abscess. FINDINGS: The patient was found to have markedly inflamed segment of sigmoid colon looped on itself and stuck to the anterior abdominal wall with a small intramesenteric abscess. Remainder of the colon appeared to be intact with no significant diverticular disease. There was no free perforation or contamination in the abdomen. ESTIMATED BLOOD LOSS: less than 50 cc. DESCRIPTION OF PROCEDURE: The patient was taken to the operating room where she received satisfactory general endotracheal anesthesia by Dr. Bernard, placed in the supine position in low stirrups, prepped and draped in usual sterile fashion. A periumbilical incision was made. A Veress needle inserted. Pneumoperitoneum was established. Trocar was introduced. Laparoscope was introduced. Adequate visualization was obtained. Two other trocars were placed in the left lower quadrant. Adhesions were taken down until the pelvis could be exposed. The offending segment of sigmoid colon was easily visualized, and there was adequate normal-appearing colon above and below this area for primary anastomosis. The colon was dissected off the anterior abdominal wall and small abscess cavity was entered and suctioned clear and the colon was fully mobilized. After adequate mobilization, the suprapubic incision was made through the previous old hysterectomy scar. The colon was brought up into the wound. Mesenteric division was completed with the Harmonic Scalpel, and the colon was divided above and below this section with ROBERT stapler. The specimen was removed. [id number] anastomosis was made between the distal sigmoid and the descending colon. This was completed after mobilization of the splenic flexure for adequate length and reducing any tension on the suture line. The suture line was reinforced with interrupted 3-0 silk sutures and a cross application of the ROBERT to close the insertion site. This created a good 3 fingerbreadth anastomosis. The end suture lines were oversewn with a running 3-0 Vicryl suture, covered with some pericolonic fat tissue. Specimen was returned into the abdomen. The wound was irrigated. Hemostasis was assured. No other abnormalities were encountered. Lonnie wound protector had been used and was removed. A clean closure setup was then used. The abdomen was closed with 0 Vicryl for the peritoneum, #1 PDS running suture for the rectus sheath, 3-0 Vicryl for the subcu, and a 4-0 Monocryl subcuticular stitch for the skin. The trocar sites were closed with 4-0 Monocryl subcuticular sutures and 0 Vicryl for the fascia. All wounds were infiltrated with 0.5% Marcaine. She tolerated the procedure well. She was taken to the recovery room in good condition. There were no complications. PREOPERATIVE DIAGNOSIS: Recurrent diverticulitis with perforation. /[id number]/MODL MTDD
--- NOTE | 2017-12-25 12:21 | HOSPPROG ---
Hospitalist Progress Note Assessment/Plan: 67-year-old female presents the emergency room with complaints of abdominal pain. Had been on Augmentin in the outpatient setting for presumed diverticulitis. CT shows possible abscess. # Recurrent Diverticulitis w contained abscess -POD #1 lap assisted colectomy -patient is doing well -cont iv abx for now, ceftriaxone + Flagyl # Leukocytosis -stress induced from surgery #anemia- monitor #DVT PPX - -frequent ambulation -will need lmwh initiated after surgery/ will start tomorrow #plan: tolerating clear liquids, pain is well managed Subjective: Latisha is not having any significant pain. No nausea. Had some dizziness earlier. Objective: Vital Signs Temp Pulse Resp BP Pulse Ox 36.4 C 85 16 126/67 H 94 12/25/17 11:32 12/25/17 11:32 12/25/17 11:32 12/25/17 11:32 12/25/17 11:32 Microbiology 12/18/17 19:40 Blood Culture - Final Blood 12/18/17 18:40 Blood Culture - Final Blood Laboratory Results 12/25/17 04:44 12/25/17 04:44 12/24/17 12/25/17 12/26/17 05:59 05:59 05:59 Intake Total 125 1520 Output Total 500 200 Balance 125 1020 -200 - Physical Exam Constitutional: no apparent distress, appears nourished, not in pain Eyes: PERRL Ears, Nose, Mouth, Throat: hearing normal Cardiovascular: regular rate and rhythym Respiratory: no respiratory distress Gastrointestinal: other (abdominal incisions well approximated), No normoactive bowel sounds (hypoactive) Skin: warm, normal color Musculoskeletal: full muscle strength Neurologic: AAOx3 Psychiatric: interacting appropriately ICD10 Worksheet Patient Problems: Problems Problem Status Onset Diverticulitis Acute
[2017-12-25] MEDS: HYDROCODONE/APAP 5/325 TAB PO PRN ×2 (14:44→21:26)
[2017-12-26] MEDS: KETOROLAC 15 MG/1 ML SDV IVP SCH ×4 (00:27→17:27)
[2017-12-26] MEDS: METOCLOPRAMIDE 10 MG/2 ML VIAL IVP SCH ×4 (00:27→17:27)
--- NOTE | 2017-12-26 08:36 | SOAPPROG ---
SOAP Progress Note Assessment/Plan: Assessment: 67-year-old F s/p lap assisted sigmoid colectomy for perforated diverticulitis POD #2 S: Doing well over all. Tolerating clears. Passing flatus and reports "lots of rumbling" in abdomen. Would like to get up oob, but feels held down by IV fluids and pulse ox. Reports recent dx of LEOBARDO, has not been fitted for CPAP yet. Pain well controlled. O: Alert Afebrile WBC was 17 yesterday Cardiac: RRR Chest: CTA bilaterally Abdomen: soft, mildly distended, mild ttp throughout, normoactive bowel sounds, incisions cdi Plan: D/c IV fluids and chase. Can d/c pulse ox during day. Get up and walking as much as possible today. Advance diet to full liquids, per pt's request. Recheck CBC today. 12/26/17 08:36 Objective: Vital Signs Temp Pulse Resp BP Pulse Ox 36.7 C 81 18 136/75 H 90 L 12/26/17 04:00 12/26/17 04:00 12/26/17 04:00 12/26/17 04:00 12/26/17 04:00 Laboratory Results 12/25/17 04:44 12/25/17 04:44 12/25/17 12/26/17 12/27/17 05:59 05:59 05:59 Intake Total 1520 0222 Output Total 500 1500 Balance 1020 1259 ICD10 Worksheet Patient Problems: Problems Problem Status Onset Diverticulitis Acute
--- NOTE | 2017-12-26 08:52 | HOSPPROG ---
Hospitalist Progress Note Assessment/Plan: 67-year-old female presents the emergency room with complaints of abdominal pain. Had been on Augmentin in the outpatient setting for presumed diverticulitis. CT shows possible abscess. # Recurrent Diverticulitis w contained abscess -POD #2 lap assisted colectomy -patient is doing well -cont iv abx for now, ceftriaxone + Flagyl # Leukocytosis -stress induced from surgery #anemia- monitor #DVT PPX - -lmwh #plan:continue the above, suspect she will be dc in the next day Subjective: Latisha is feeling overall well, feels her stomach is starting to rumble. Objective: Vital Signs Temp Pulse Resp BP Pulse Ox 36.7 C 81 18 136/75 H 90 L 12/26/17 04:00 12/26/17 04:00 12/26/17 04:00 12/26/17 04:00 12/26/17 04:00 Laboratory Results 12/25/17 04:44 12/25/17 12/26/17 12/27/17 05:59 05:59 05:59 Intake Total 1520 2759 Output Total 500 1500 Balance 1020 1259 - Physical Exam Constitutional: no apparent distress, appears nourished, not in pain Eyes: PERRL Ears, Nose, Mouth, Throat: hearing normal Cardiovascular: regular rate and rhythym Respiratory: no respiratory distress Gastrointestinal: normoactive bowel sounds Skin: warm Musculoskeletal: full muscle strength Neurologic: AAOx3 Psychiatric: interacting appropriately ICD10 Worksheet Patient Problems: Problems Problem Status Onset Diverticulitis Acute
[2017-12-26 09:03] LABS: PLATELET COUNT 337 10^3/uL (150-400)
[2017-12-26] MEDS: PANTOPRAZOLE SODIUM 40 MG VIAL IVP SCH (09:15)
[2017-12-26] MEDS: cefTRIAXone 2 GM in STERILE WATER INJ 20 ML IV SCH (09:17)
[2017-12-26] MEDS: RELIZEN PO SCH (09:22)
[2017-12-26] MEDS: ENOXAPARIN 40 MG/0.4 ML SYR SC SCH (10:45)
--- NOTE | 2017-12-26 11:55 | ASMTCMCOM ---
CM Note CM Note Notes: Spoke w/RN, anticipate pt will dc home w/support of when medically stable. CM available for any changes. DC Plan: Independent Date Signed: 12/26/2017 11:55 AM Electronically Signed By:Amanda Choe RN
[2017-12-27] MEDS: METOCLOPRAMIDE 10 MG/2 ML VIAL IVP SCH ×2 (01:02→06:25)
[2017-12-27] MEDS: KETOROLAC 15 MG/1 ML SDV IVP SCH ×4 (01:02→17:44)
[2017-12-27 08:03] LABS: PLATELET COUNT 333 10^3/uL (150-400)
[2017-12-27] MEDS: cefTRIAXone 2 GM in STERILE WATER INJ 20 ML IV SCH (09:32)
--- NOTE | 2017-12-27 09:50 | SOAPPROG ---
SOAP Progress Note Assessment/Plan: Assessment: 67-year-old F s/p lap assisted sigmoid colectomy for perforated diverticulitis POD #2 S: Doing well over all. Tolerating clears. Passing flatus and reports "lots of rumbling" in abdomen. Would like to get up oob, but feels held down by IV fluids and pulse ox. Reports recent dx of LEOBARDO, has not been fitted for CPAP yet. Pain well controlled. O: Alert Afebrile WBC was 17 yesterday Cardiac: RRR Chest: CTA bilaterally Abdomen: soft, mildly distended, mild ttp throughout, normoactive bowel sounds, incisions cdi Plan: D/c IV fluids and chase. Can d/c pulse ox during day. Get up and walking as much as possible today. Advance diet to full liquids, per pt's request. Recheck CBC today. 12/26/17 08:36 12/27/17 09:46 Continuing to improve. Passing flatus and BMs. Pain well controlled. Likely home later today. Pt seen with Dr. Orozco. Objective: Vital Signs Temp Pulse Resp BP Pulse Ox 36.8 C 92 16 139/71 H 92 12/27/17 07:44 12/27/17 07:44 12/27/17 07:44 12/27/17 07:44 12/27/17 07:44 Laboratory Results 12/27/17 07:54 12/25/17 04:44 12/26/17 12/27/17 12/28/17 05:59 05:59 05:59 Intake Total 2755 1680 Output Total 1500 1600 Balance 1259 80 ICD10 Worksheet Patient Problems: Problems Problem Status Onset Diverticulitis Acute
[2017-12-27] MEDS: RELIZEN PO SCH (09:55)
[2017-12-27] MEDS: PANTOPRAZOLE SODIUM 40 MG VIAL IVP SCH (09:55)
[2017-12-27] MEDS: ENOXAPARIN 40 MG/0.4 ML SYR SC SCH (09:56)
--- NOTE | 2017-12-27 11:09 | HOSPPROG ---
Hospitalist Progress Note Assessment/Plan: 67-year-old female presents the emergency room with complaints of abdominal pain. Had been on Augmentin in the outpatient setting for presumed diverticulitis. CT shows possible abscess. # Recurrent Diverticulitis w contained abscess -POD #3 lap assisted colectomy -patient is doing well -cont iv abx for now, ceftriaxone + Flagyl # Leukocytosis -improved #anemia- monitor #DVT PPX - -lmwh #plan: Thelma is feeling poorly today, not quite ready to go home. Will dc IV abx after tonight's dose and give her Levaquin for 5 days. Subjective: Latisha is tired today, feeling overall weak and somewhat achey. Objective: Vital Signs Temp Pulse Resp BP Pulse Ox 36.8 C 92 16 139/71 H 92 12/27/17 07:44 12/27/17 07:44 12/27/17 07:44 12/27/17 07:44 12/27/17 07:44 Laboratory Results 12/27/17 07:54 12/25/17 04:44 12/26/17 12/27/17 12/28/17 05:59 05:59 05:59 Intake Total 2759 1680 Output Total 1500 1600 Balance 1259 80 - Physical Exam Constitutional: uncomfortable Eyes: PERRL Ears, Nose, Mouth, Throat: hearing normal Cardiovascular: regular rate and rhythym Respiratory: no respiratory distress Gastrointestinal: normoactive bowel sounds, other (incisions without redness, well approximated, no draiange) Skin: warm Musculoskeletal: full muscle strength Neurologic: AAOx3 Psychiatric: interacting appropriately ICD10 Worksheet Patient Problems: Problems Problem Status Onset Diverticulitis Acute
[2017-12-28] MEDS: KETOROLAC 15 MG/1 ML SDV IVP SCH ×2 (00:16→06:32)
[2017-12-28 07:40] VITALS: BP 132/80
[2017-12-28] MEDS: ENOXAPARIN 40 MG/0.4 ML SYR SC SCH (08:38)
[2017-12-28] MEDS: PANTOPRAZOLE SODIUM 40 MG VIAL IVP SCH (08:38)
[2017-12-28] MEDS: RELIZEN PO SCH ×2 (08:44→08:52)
--- NOTE | 2017-12-28 09:01 | HOSPPROG ---
Hospitalist Progress Note Assessment/Plan: 67-year-old female presents the emergency room with complaints of abdominal pain. Had been on Augmentin in the outpatient setting for presumed diverticulitis. CT shows possible abscess. # Recurrent Diverticulitis w contained abscess -POD #4 lap assisted colectomy -dc IV abx, start Levaquin, reviewed w her risks of this medication # Leukocytosis -improved #anemia- monitor #DVT PPX - -lmwh #plan: dc home w close f/u with Dr Orozco Subjective: Latisha is feeling much better today. Objective: Vital Signs Temp Pulse Resp BP Pulse Ox 36.6 C 70 14 132/80 H 92 12/28/17 07:39 12/28/17 07:39 12/28/17 07:39 12/28/17 07:39 12/28/17 07:39 Laboratory Results 12/27/17 07:54 12/25/17 04:44 12/27/17 12/28/17 12/29/17 05:59 05:59 05:59 Intake Total 1680 Output Total 1600 Balance 80 - Physical Exam Constitutional: no apparent distress, appears nourished, not in pain Eyes: PERRL Ears, Nose, Mouth, Throat: hearing normal Respiratory: no respiratory distress Gastrointestinal: normoactive bowel sounds, other (abdominal incision well approximated, no drainage) Skin: warm Musculoskeletal: full muscle strength Neurologic: AAOx3 Psychiatric: interacting appropriately ICD10 Worksheet Patient Problems: Problems Problem Status Onset Diverticulitis Acute
--- NOTE | 2017-12-28 09:42 | GDS ---
[f rep st] DISCHARGE SUMMARY DISCHARGE DIAGNOSES: 1. Recurrent diverticulitis with contained abscess. 2. Leukocytosis. 3. Anemia. CONSULTATION: Dr. Viral Orozco. HISTORY: Briefly, the patient is a 67-year-old female who is very healthy. [facility] of [facility] pain. She had been on Augmentin in the outpatient setting f or presumed diverticulitis. She had a CT of the abdomen performed, which showed a possible abscess. She was seen and evaluated by Dr. Orozco and had a lap-assisted colectomy. She was also treated with IV antibiotics. She is markedly improved. She will be discharged home and further followup with Dr Dakota Orozco. HOSPITAL COURSE: 1. Recurrent diverticulitis. She is postop day #4 for a lap-assisted colectomy, overall doing well. 2. Leukocytosis, improved. 3. Anemia secondary to surgery and blood loss. DISCHARGE CONDITION: Stable. Blood pressure is 132/80. Heart rate is 70. Respiratory rate is 14. O2 sats on room air 92%. Temperature is 36.6 Celsius. DISCHARGE MEDICATIONS: Please see the EMR. DISCHARGE INSTRUCTIONS: 1. Avoid heavy lifting, yoga, Pilates, playing golf, and tennis for 6 weeks. 2. She may shower but not soak in a tub or pool. 3. Follow up with Dr. Orozco in 2 weeks. 4. Call if fever, chills, and increased pain. 5. Reviewed with her the side effects of Levaquin. 6. If she is having pain, she can try ibuprofen or Tylenol. /[id number]/MODL
== END 2017-12-28 11:47 | disposition home or self-care (01) | DRG 348 ==
LOC: PREOBSVTOIN 17:36 → F3E 17:46
PROVIDERS: ADMIT Hospitalist; ATTEND Hospitalist
PROC: 0DBNFZZ Excision of Sigmoid Colon, Via Natural or Artificial Opening With Percutaneous Endoscopic Assistance (ICD-10-PCS; principal; 2017-12-24 16:00)
DX: K57.20 Diverticulitis of large intestine with perforation and abscess without bleeding (principal); D62 Acute posthemorrhagic anemia; E16.2 Hypoglycemia, unspecified; G47.33 Obstructive sleep apnea (adult) (pediatric)
CPT/HCPCS: J0696; J1170; J1650; J1885; J2250; J2405; J2704; J2765; J3010; Q9967

== ENCOUNTER → 2017-12-18 | Outpatient (CLI) | payer OTHER, MEDICARE ==
[~2017-12-18] MED LIST changes: -IOPAMIDOL (ISOVUE-300) 100 ML BTL IV ONE; +IOPAMIDOL (ISOVUE-300) 100 ML BTL ONE
== END ==
LOC: FIMAGING 14:01
PROVIDERS: ATTEND Internal Medicine
DX: K57.30 Diverticulosis of large intestine without perforation or abscess without bleeding (principal); D18.03 Hemangioma of intra-abdominal structures; J98.11 Atelectasis; M51.36 Other intervertebral disc degeneration, lumbar region; M41.86 Other forms of scoliosis, lumbar region
CPT/HCPCS: 74177; Q9967

== ENCOUNTER → 2018-05-17 | Outpatient (CLI) | payer OTHER, MEDICARE | LOC: FIMAGING 14:13 | PROVIDERS: ATTEND Nurse Practitioner Adult Health | DX: K57.30 Diverticulosis of large intestine without perforation or abscess without bleeding (principal); K59.00 Constipation, unspecified | CPT/HCPCS: 74177; Q9967; 82565-PO ==